=== PATIENT | male | born 1985 | race Caucasian/White ===

== ENCOUNTER 2017-05-22 21:10 | Emergency (ER) | payer BC, OTHER ==
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
[2017-05-22 22:53] VITALS: BP 111/69
== END 2017-05-22 22:54 | disposition home or self-care (01) ==
LOC: ER 21:10
PROC: 0JQ10ZZ Repair Face Subcutaneous Tissue and Fascia, Open Approach (ICD-10-PCS; principal; 2017-05-22)
DX: S01.112A Laceration without foreign body of left eyelid and periocular area, initial encounter (principal); S00.31XA Abrasion of nose, initial encounter; S09.90XA Unspecified injury of head, initial encounter; F17.200 Nicotine dependence, unspecified, uncomplicated; W01.198A Fall on same level from slipping, tripping and stumbling with subsequent striking against other object, initial encounter; Y92.810 Car as the place of occurrence of the external cause